=== PATIENT | female | born 1985 | race Caucasian/White ===

== ENCOUNTER → 2016-12-09 | Outpatient (CLI) | payer OTHER ==
[2016-04-08 13:40] VITALS: BP 114/75
[~2016-12-09] MED LIST: IBUP-1060 PO; PNV1TABL25 PO
--- NOTE | 2016-12-09 11:12 | RAD ---
PROCEDURE MR of the left knee HISTORY MR of the left knee Generalized pain for 2 weeks. History of arthroscopy. TECHNIQUE Routine multiplanar sequences are obtained. COMPARISON None FINDINGS No evidence of a medial meniscal tear. No evidence of a lateral meniscal tear. The anterior and the posterior cruciate ligaments are intact. Medial collateral ligament is intact. Iliotibial band unremarkable. Fibular collateral ligament, biceps femoris tendon and popliteus tendon are intact. Patellar tendon and quadriceps tendon are intact. There is a division of the lateral retinaculum, presumably due to a surgical release. Moderate joint effusion. Full-thickness articular cartilage defect at the posterior weight-bearing lateral femoral condyle measures 8 millimeters AP diameter by 6 millimeters wide. The cartilage fragment is in situ, with a thin surrounding margin of fluid signal. The fragment is completely surrounded by fluid, but there is no fluid across the basal layer and this fragment may therefore not be detached from the subchondral bone. Moderate chondromalacia at the posterior lateral tibial plateau. No evidence of bone lesion or acute fracture. Small intraosseous cyst or reactive change at the tibial plateau. No aggressive bone destruction. No acute soft tissue abnormality. IMPRESSION 1. Full-thickness articular cartilage tear at the posterior weight-bearing lateral femoral condyle with in situ cartilage fragment. There is no evidence of separation of this fragment from the underlying subchondral bone, but the fragment is surrounded by a rim of fluid signal. Chondromalacia at the subjacent posterior lateral tibial plateau. 2. No meniscal tear or other internal derangement. Electronically signed by: Kye Vásquez MD (Dec 09, 2016 11:10:45)
== END | disposition home or self-care (01) ==
LOC: MRI 08:05
PROVIDERS: ATTEND Nurse Practitioner Gerontology
DX: M25.562 Pain in left knee (principal)
CPT/HCPCS: 73721

== ENCOUNTER 2016-12-30 07:36 | Day surgery (SDC) | payer OTHER ==
[~2016-12-30] VITALS: Ht 167.6 cm; Wt 59.0 kg
[~2016-12-30 07:36] MED LIST changes: +HYDROmorphone 2 MG/ML VIAL IV PRN; +IV RINGERS,LACTATED 1000ML 1,000 ML IV SCH; +LIDOCAINE 1% 1 ML SYRINGE. ID PRN; +MEPERIDINE PF 25 MG/ML VIAL. IV PRN; +MIDAZOLAM HCL/PF 2 MG/2 ML VIAL. IV PRN; +MORPHINE SULFATE 4 MG/ML DISP.SYRIN. IV PRN; +PROCHLORPERAZINE 10 MG/2 ML VIAL. IV PRN; +diphenhydrAMINE 50 MG/ML VIAL IV PRN; +fentaNYL PF VIAL 100 MCG/2 ML VIAL IV PRN
[2016-12-30 08:07] LABS: NEG OBC UR NEG; POS OBC UR POS
[2016-12-30] MEDS ORDERED: MIDAZOLAM HCL/PF 2 MG/2 ML VIAL. ONE (08:24)
[2016-12-30] MEDS ORDERED: DEXAMETHASONE SOD PHOS 20 MG/5 ML VIAL. ONE (08:24)
[2016-12-30] MEDS ORDERED: FAMOTIDINE 20 MG/2 ML VIAL ONE (08:24)
[2016-12-30] MEDS ORDERED: ONDANSETRON PF 4 MG/2 ML VIAL. ONE (08:24)
[2016-12-30] MEDS ORDERED: fentaNYL PF VIAL 100 MCG/2 ML VIAL ONE (08:24)
[2016-12-30] MEDS ORDERED: PROPOFOL 20 ML IV ONE (08:24)
[2016-12-30] MEDS ORDERED: LIDOCAINE 2% 100 MG/5 ML SYRINGE. ONE (08:24)
--- NOTE | 2016-12-30 08:27 | PDOC ---
BRIEF OPERATIVE NOTE Date: December 30, 2016 Pre-Op Diagnosis L knee cartilage defect, lateral femoral condyle Post-Op Diagnosis same Procedure Performed L knee scope, microfracture Surgeon Celine Anesthesiologist Keaton Anesthesia Type: General Blood Loss 10mL Complications none PELON POWELL II, MD December 30, 2016 08:27
--- NOTE | 2016-12-30 08:28 | DISCH ---
DISCHARGE INSTRUCTIONS Condition on Discharge Condition on Discharge: Stable Activity After Discharge Activity Instructions for Disc: Other, see below Bathing Instructions: Shower-keep dressing dry Weight Bearing Status after Di: Non weight bearing Diet after Discharge Diet after Discharge: Regular Wound Incision Care Wound/Incision Care: Ice to area for comfort, Keep wound/cast CDI, Change dressing Contacting the DRAndrew after DC Call your doctor for: Concerns you may have Follow-Up Follow up with: Celine in 2wks Treatment/Equipment after DC Adaptive Equipment Issued: PELON Yang II, MD December 30, 2016 08:28
[2016-12-30] MEDS ORDERED: BUPIVACAINE MPF 0.5% 30 ML VIAL. ONE (08:48)
[2016-12-30] MEDS ORDERED: EPINEPHrine VIAL 30 MG/30 ML VIAL ONE (08:48)
[2016-12-30] MEDS ORDERED: LIDOCAINE 1% 20 ML VIAL. ONE (08:48)
[2016-12-30] MEDS ORDERED: SCOPOLAMINE 1.5MG PATCH. TD SCH (09:00)
[2016-12-30] MEDS ORDERED: SEVOFLURANE 61 TO 120 MINUTES. IH ONE (09:55)
[2016-12-30] MEDS ORDERED: OXYC-323 PO (10:25)
[2016-12-30] MEDS ORDERED: DOCU-27 PO (10:25)
[2016-12-30] MEDS ORDERED: ONDA4TAB10 SL (10:26)
[2016-12-30] MEDS ORDERED: OXYCODONE/APAP 5/325 TABLET. ONE (10:42)
[2016-12-30] MEDS ORDERED: OXYCODONE/APAP 5/325 TABLET. PO ONE (10:45)
[2016-12-30 10:55] VITALS: BP 107/60
--- NOTE | 2016-12-30 13:30 | OP ---
DATE OF SURGERY: 12/30/2016 SURGEON: Rafael Powell MD BENZENE STILL UTILITY OPERATOR: None. ANESTHESIA: General. PREOPERATIVE DIAGNOSIS: Full thickness cartilage defect lateral femoral condyle, left knee. POSTOPERATIVE DIAGNOSIS: Full thickness cartilage defect lateral femoral condyle, left knee. PROCEDURE PERFORMED: Left knee arthroscopy with microfracture. COMPLICATIONS: None. ESTIMATED BLOOD LOSS: 10 mL. TOURNIQUET TIME: 32 minutes. FINDINGS: 1. Intact patellofemoral cartilage. 2. No cartilage pathology of medial femoral condyle and medial tibial plateau. 3. Intact and stable medial meniscus. 4. Intact cruciate ligaments. 5. She had a 5 x 1 cm loose body in her knee. 6. She had a 5 x 1 cm full thickness cartilage defect lateral femoral condyle at approximately 30 or 40 degrees. 7. She had grade 2-3 changes at her lateral tibial plateau. 8. Intact lateral meniscus without pathology. PROCEDURES PERFORMED: Left knee arthroscopy with microfracture of cartilage defect, 5 mm x 10 mm. REASON FOR PROCEDURE: The patient is a very pleasant 31-year-old female who had presented to my outpatient orthopedic surgery clinic with complaints of knee pain and swelling. I had seen her in quite some time before for that and she mentioned her knees are bothering over the pain has got worse and the swelling was new. An MRI and radiographs had been obtaining and clinical workup and MRI were reviewed and discussed with her and I recommended we proceed with surgery. She elects to proceed. DESCRIPTION OF PROCEDURE: The patient was greeted in the preoperative area by myself. Correct extremity was marked and verified. The patient was taken to the operative suite and antibiotics were started en route. Once in the OR, she transferred gently supine on the OR table and secured to the bed. All pressure points were padded. She had a large padded bolster at her hip and a bar secured to the bed to maintain her leg at 90 degrees of flexion. We then placed a nonsterile tourniquet to her left thigh. We proceeded to prep and drape left lower extremity in our usual sterile fashion and conducted a standard preoperative timeout. Extremity was exsanguinated with an Esmarch and tourniquet insufflated to 250 mmHg. I then palpated, marked surface anatomy and made my standard anterolateral arthroscopic portal and then used the blunt arthroscopic trocar into the suprapatellar pouch. I then conducted my diagnostic arthroscopy. Upon entering the medial compartment, used a spinal needle localizing anteromedial portal and incised skin in accordance with this. I then introduced a probe and continued on with my diagnostic arthroscopy with the above noted findings. The loose body that was once encountered to the cartilage defect, I did note the loose body was trapped in there, but once I flexed the knee it was completely loose and I removed it from the knee joint with a grasper. I then placed the knee into a [id number] position and inspected the remainder of the lateral compartment. I then brought the knee back up more extension and used a curette to debride the lesion site and remove the calcified cartilage. I then used a shaver to remove loose bony debris. She had a very well-shouldered lesion. I then used a microfracture awl and placed several holes through the subchondral bone and held my shaver again these an aspirated to ensure that extravasation occurred at the holes. I then went around the entire knee again to make sure that there were no residual loose bodies. I then placed the camera and shaver in the suprapatellar pouch and assisted vigorously palpate behind the knee while performed repeated aspiration maneuvers through the shaver. I had removed all excess arthroscopic fluid and the arthroscopic instrumentation. I injected approximately 7 mL of local anesthetic around the periportal areas. The skin was then closed with a simple interrupted 2-0 nylon. Xeroform, sterile dressing, sterile cast padding and Jesús wrap were then applied. Tourniquet was let down. A hinged knee brace was then placed on the knee left open and full range of motion. Postop plan is further work on range of motion exercises. We will see her back in clinic in two weeks, sooner should problems arise. RAFAEL POWELL MD DR: CARLOS ENRIQUE/camacho JOB#: [id number] / [id number] NASIM
== END 2016-12-30 11:13 | disposition home or self-care (01) ==
LOC: SURG 07:36
PROVIDERS: ATTEND Orthopaedic Surgery Sports Medicine
DX: M94.8X6 Other specified disorders of cartilage, lower leg (principal); M23.42 Loose body in knee, left knee; E16.2 Hypoglycemia, unspecified; Z87.39 Personal history of other diseases of the musculoskeletal system and connective tissue
CPT/HCPCS: 29879; 81025; C1782; J0171; J0690; J1100; J2250; J2405; J2704; J3010; J3490; J7120; S0028

== ENCOUNTER 2017-01-27 09:02 | Emergency (ER) | payer OTHER ==
[~2017-01-27] VITALS: Ht 167.6 cm; Wt 59.0 kg
[~2017-01-27 09:02] MED LIST changes: +DOCU-27 PO; -HYDROmorphone 2 MG/ML VIAL IV PRN; -IV RINGERS,LACTATED 1000ML 1,000 ML IV SCH; -LIDOCAINE 1% 1 ML SYRINGE. ID PRN; -MEPERIDINE PF 25 MG/ML VIAL. IV PRN; -MIDAZOLAM HCL/PF 2 MG/2 ML VIAL. IV PRN; -MORPHINE SULFATE 4 MG/ML DISP.SYRIN. IV PRN; +ONDA4TAB10 SL; +OXYC-323 PO; -PROCHLORPERAZINE 10 MG/2 ML VIAL. IV PRN; -diphenhydrAMINE 50 MG/ML VIAL IV PRN; -fentaNYL PF VIAL 100 MCG/2 ML VIAL IV PRN
[2017-01-27 09:10] VITALS: BP 120/86
[2017-01-27] MEDS ORDERED: CLIN-44 PO (09:25)
[2017-01-27] MEDS ORDERED: PRED50TA PO (09:25)
--- NOTE | 2017-01-27 09:25 | PHYS DOC ---
Past Medical History Past Medical History: No Pertinent History Past Surgical History: Other Additional Past Surgical Histo: left knee Alcohol Use: Occasionally Drug Use: None Adult General Chief Complaint Chief Complaint: FOOT INJURY PAIN HPI HPI Patient is a 31 year old female who presents with an insect bite to the left medial ankle that happened 2 weeks ago. Patient states the area has increased swelling and redness. Patient denies any fever. Patient states she had arthroscopic knee surgery 4 weeks ago. Review of Systems Review of Systems Constitutional: Denies fever or chills [] Eyes: Denies change in visual acuity, redness, or eye pain [] HENT: Denies nasal congestion or sore throat [] Respiratory: Denies cough or shortness of breath [] Cardiovascular: No additional information not addressed in HPI [] GI: Denies abdominal pain, nausea, vomiting, bloody stools or diarrhea [] : Denies dysuria or hematuria [] Musculoskeletal: Denies back pain or joint pain [] Integument: Left medial ankle insect bite Neurologic: Denies headache, focal weakness or sensory changes [] Endocrine: Denies polyuria or polydipsia [] Allergies Allergies Allergies Coded Allergies Type Severity Reaction Last Updated Verified Sulfa (Sulfonamide Antibiotics) Allergy Severe 12/30/16 Yes egg Allergy Intermediate 12/30/16 Yes Physical Exam Physical Exam Constitutional: Well developed, well nourished, no acute distress, non-toxic appearance. [] HENT: Normocephalic, atraumatic, bilateral external ears normal, oropharynx moist, no oral exudates, nose normal. [] Eyes: PERRLA, EOMI, conjunctiva normal, no discharge. [] Neck: Normal range of motion, no tenderness, supple, no stridor. [] Cardiovascular:Heart rate regular rhythm, no murmur [] Lungs & Thorax: Bilateral breath sounds clear to auscultation [] Abdomen: Bowel sounds normal, soft, no tenderness, no masses, no pulsatile masses. [] Skin: Left medial ankle with a small area of cellulitis. There is mild soft tissue swelling around the left ankle especially on the medial aspect. The insect bite area is not fluctuant. The are is TTP but not warm to touch. Negative Homans sign to the left lower extremity. +2 left pedal pulse. Back: No tenderness, no CVA tenderness. [] Extremities: No tenderness, no cyanosis, no clubbing, ROM intact, no edema. [] Neurologic: Alert and oriented X 3, normal motor function, normal sensory function, no focal deficits noted. [] Psychologic: Affect normal, judgement normal, mood normal. [] Current Patient Data Vital Signs Vital Signs Date Time Temp Pulse Resp B/P (MAP) Pulse Ox O2 Delivery O2 Flow Rate FiO2 01/27/17 09:10 98.2 88 16 120/86 (97) 99 Room Air 98.2 EKG EKG [] Radiology/Procedures Radiology/Procedures [] Course & Med Decision Making Course & Med Decision Making Pertinent Labs and Imaging studies reviewed. (See chart for details) Patient is an insect bite to the left medial ankle. Discharged with prednisone, Benadryl, and clindamycin. Tetanus is up-to-date. Follow-up with PCP in one week. Provided return precautions and discharged in stable condition. Dragon Disclaimer Dragon Disclaimer This electronic medical record was generated, in whole or in part, using a voice recognition dictation system. Departure Departure Impression: Primary Impression: Cellulitis of left lower extremity Additional Impression: Nonvenomous spider bite of lower leg Disposition: HOME, SELF-CARE Condition: STABLE Referrals: FELIPE MERCADO MD (PCP) Follow-up in 3-7 days Patient Instructions: Cellulitis, Spider Bite Additional Instructions: You were seen for cellulitis of the left lower extremity from a spider bite. Take the prescribed antibiotics as ordered. Ensure you complete them. Continue taking ibuprofen as needed for pain. It'll help with the swelling as well. You can take Benadryl. It'll help with itching. We put you on prednisone for 5 days. It'll help with the inflammation. You do not have to take the prednisone some people do not like it because it makes them gain extra weight. Follow-up with your own doctor in the next 7 days. Come back to the emergency room if you develop any fever, or worsening wound condition. Continue to ice and elevate the extremity. Scripts Prednisone (PREDNISONE) 50 Mg Tablet 1 TAB PO DAILY, #5 TAB Prov: XIOMARA PURCELL HUMAN RESOURCES DEPARTMENT SUPERVISOR 01/27/17 Clindamycin Hcl (CLINDAMYCIN HCL) 150 Mg Capsule 3 CAP PO TID, #90 CAP Prov: JOSE LUISAXIOMARA HUMAN RESOURCES DEPARTMENT SUPERVISOR 01/27/17 Problem Qualifiers Additional Impression: Nonvenomous spider bite of lower leg Encounter type: initial encounter Laterality: left Qualified Codes: S80.862A - Insect bite (nonvenomous), left lower leg, initial encounter; W57.XXXA - Bitten or stung by nonvenomous insect and other nonvenomous arthropods, initial encounter XIOMARA PURCELL APRN January 27, 2017 09:25
== END 2017-01-27 09:28 | disposition home or self-care (01) ==
LOC: ER 09:02
DX: S90.562A Insect bite (nonvenomous), left ankle, initial encounter (principal); L03.116 Cellulitis of left lower limb; Z88.2 Allergy status to sulfonamides; Z91.012 Allergy to eggs; W57.XXXA Bitten or stung by nonvenomous insect and other nonvenomous arthropods, initial encounter; Y93.89 Activity, other specified; Y92.89 Other specified places as the place of occurrence of the external cause; Y99.8 Other external cause status
CPT/HCPCS: 99283

== ENCOUNTER → 2017-05-28 | Outpatient (CLI) | payer OTHER ==
[~2017-05-28] MED LIST changes: +CLIN150C14 PO; +DOCU-109 PO; -DOCU-27 PO; +PRED50TA PO
[2017-05-28 09:39] LABS: BASO # 0.1 x10^3/uL (0.0-0.2); BASO % 1 % (0-3); EOS % 2 % (0-3); HEMOGLOBIN 13.3 g/dL (12.0-15.5); LYMPH # 2.8 x10^3/uL (1.0-4.8); LYMPH % 32 % (24-48); MEAN CORPUSCULAR HEMOGLOBIN 31 pg (25-35); MEAN CORPUSCULAR HGB CONC 34 g/dL (31-37); MEAN CORPUSCULAR VOLUME 90 fL (79-100); MONO % 8 % (0-9); NEUT % 57 % (31-73); PLATELET COUNT 233 x10^3/uL (140-400); RED BLOOD COUNT 4.32 x10^6/uL (3.50-5.40); RED CELL DISTRIBUTION WIDTH 12.4 % (11.5-14.5); WHITE BLOOD COUNT 8.8 x10^3/uL (4.0-11.0)
[2017-05-28 10:04] LABS: ALBUMIN 4.4 g/dL (3.4-5.0); ALBUMIN/GLOBULIN RATIO 1.4 (1.0-1.7); CALCIUM 8.8 mg/dL (8.5-10.1); CREATININE 0.7 mg/dL (0.6-1.0); GFR 98.3; POTASSIUM 3.9 mmol/L (3.5-5.1); TOTAL BILIRUBIN 0.7 mg/dL (0.2-1.0); TOTAL PROTEIN 7.5 g/dL (6.4-8.2)
[2017-05-28 10:07] LABS: CHOLESTEROL/HDL RATIO 1.7
[2017-05-28 10:13] LABS: FREE T4 0.87 ng/dL (0.76-1.46)
== END | disposition home or self-care (01) ==
LOC: LAB 09:27
PROVIDERS: ATTEND Obstetrics & Gynecology
DX: Z01.419 Encounter for gynecological examination (general) (routine) without abnormal findings (principal); Z79.899 Other long term (current) drug therapy
CPT/HCPCS: 36415; 80053; 80061; 84439; 84443; 85025

== ENCOUNTER → 2019-09-19 | Outpatient (CLI) | payer OTHER ==
[~2019-09-19] MED LIST changes: -OXYC-323 PO; +OXYC1TAB15 PO
[2019-09-19 12:36] LABS: BASO # 0.1 x10^3/uL (0.0-0.2); BASO % 1 % (0-3); BILIRUBIN,URINE NEGATIVE (NEG); CLARITY,URINE CLEAR; COLOR,URINE YELLOW; EOS # 0.2 x10^3/uL (0.0-0.7); EOS % 2 % (0-3); HEMATOCRIT 38.3 % (36.0-47.0); HEMOGLOBIN 13.2 g/dL (12.0-15.5); LYMPH # 2.7 x10^3/uL (1.0-4.8); LYMPH % 32 % (24-48); MEAN CORPUSCULAR HEMOGLOBIN 31 pg (25-35); MEAN CORPUSCULAR HGB CONC 34 g/dL (31-37); MEAN CORPUSCULAR VOLUME 89 fL (79-100); MONO # 0.7 x10^3/uL (0.0-1.1); MONO % 8 % (0-9); NEUT # 4.8 x10^3/uL (1.8-7.7); NEUT % 57 % (31-73); NITRITE,URINE NEGATIVE (NEG); PH,URINE 5.5; PLATELET COUNT 236 x10^3/uL (140-400); PROTEIN,URINE NEGATIVE (NEG-TRACE); RED BLOOD COUNT 4.29 x10^6/uL (3.50-5.40); RED CELL DISTRIBUTION WIDTH 12.5 % (11.5-14.5); UROBILINOGEN,URINE 0.2 mg/dL (0.2 mg/dL); WHITE BLOOD COUNT 8.4 x10^3/uL (4.0-11.0)
[2019-09-19 12:47] LABS: SQUAMOUS EPITHELIAL CELL,UR FEW /LPF
[2019-09-19 12:48] LABS: BACTERIA,URINE 0 /HPF (0-FEW); RBC,URINE 0 /HPF (0-2); WBC,URINE OCC /HPF (0-4)
[2019-09-19 12:50] LABS: ALBUMIN 4.4 g/dL (3.4-5.0); ALBUMIN/GLOBULIN RATIO 1.6 (1.0-1.7); CALCIUM 8.7 mg/dL (8.5-10.1); CREATININE 0.7 mg/dL (0.6-1.0); POTASSIUM 3.7 mmol/L (3.5-5.1); TOTAL BILIRUBIN 0.5 mg/dL (0.2-1.0); TOTAL PROTEIN 7.2 g/dL (6.4-8.2)
== END | disposition home or self-care (01) ==
LOC: LAB 12:19
PROVIDERS: ATTEND Nurse Practitioner Family
DX: R07.9 Chest pain, unspecified (principal); R10.9 Unspecified abdominal pain; Z79.899 Other long term (current) drug therapy
CPT/HCPCS: 36415; 80053; 81001; 84443; 85025

== ENCOUNTER → 2019-09-19 | Outpatient (CLI) | payer OTHER ==
--- NOTE | 2019-09-19 14:09 | RAD ---
AP and Lateral Views of the Chest 09/19/2019 12:00 AM Indication: Chest pain Comparison: Chest radiograph October 30, 2010 Findings: There is no focal consolidation or infiltrate identified. The cardiomediastinal silhouette is within normal limits. There is no evidence of pneumothorax or pleural effusion. No acute osseous abnormalities are identified. Impression: No evidence of acute cardiopulmonary process. Electronically signed by: Garland Wheat MD (09/19/2019 2:06 PM) [id number]
== END | disposition home or self-care (01) ==
LOC: RAD 12:49
PROVIDERS: ATTEND Nurse Practitioner Family
DX: R07.9 Chest pain, unspecified (principal)
CPT/HCPCS: 71046

== ENCOUNTER → 2020-04-10 | Outpatient (CLI) | payer OTHER ==
--- NOTE | 2020-04-10 17:31 | RAD ---
STUDY: MRI of the left knee without contrast INDICATION: Chronic knee pain. History of microfracture surgery. COMPARISON: 12/09/2016 TECHNIQUE: Multiplanar MR imaging of the left knee performed without the use of intravenous or intra-articular contrast. FINDINGS: Particularly the axial and coronal T2 sequences are degraded by a diminished [id number] ratio. Menisci: On the sagittal T2 sequence, apparent horizontal and oblique undersurface signal extending along the body and posterior horn of the medial meniscus is without a abnormality on the coronal T2 sequence and may be artifactual. The morphology of the lateral meniscus is unchanged from 2017 the with a somewhat blunted configuration of the posterior horn. Unchanged morphology of the lateral meniscus with no fluid signal tear defect. Cruciate ligaments: Intact. Collateral ligaments: Intact. Tendons: Intact. Cartilage: Patellofemoral: No newly seen chondral defect. Lateral compartment: Sequela of microfracture procedure involving the proximal nonweightbearing lateral femoral condyle. The defect appears relatively well filled in with fibrotic tissue though there is faint subjacent marrow edema and mild irregularity of the subchondral bone plate, image 8 series 6. There is chondral thinning of the lateral tibial plateau adjacent to this location that has progressed such as seen on image 10 series 7 and development of trace subchondral cystic change is seen on image 8 series 8. Medial compartment: No newly seen chondral defect. Bones: No acute fracture or aggressive marrow signal abnormality. Miscellaneous: Small knee joint effusion. IMPRESSION: 1. Sequela of chondral microfracture procedure at the proximal nonweightbearing lateral femoral condyle. There is faint subchondral marrow edema at this location but the previously seen defect is relatively well filled with fibrotic material. Note is made that there has been progression of chondral thinning at the posterior aspect of the lateral tibial plateau adjacent to the site of microfracture but without a discrete full-thickness defect. The appearance of the medial and patellofemoral compartment cartilage is no different. 2. Horizontal/undersurface oblique signal within the medial meniscus body and posterior horn is favored artifactual as no similar signal abnormality is seen on the additional sequences. Collectively no change in morphology of either meniscus. Intact cruciate and collateral ligaments. 3. Small knee joint effusion. Electronically signed by: MATEUSZ DEL CASTILLO MD (04/10/2020 5:28 PM) [id number]
== END | disposition home or self-care (01) ==
LOC: MRI 14:01
PROVIDERS: ATTEND Orthopaedic Surgery Sports Medicine
DX: M25.462 Effusion, left knee (principal); G89.29 Other chronic pain; Z87.81 Personal history of (healed) traumatic fracture
CPT/HCPCS: 73721

== ENCOUNTER → 2020-12-03 | Outpatient (CLI) | payer OTHER ==
[~2020-12-03] MED LIST changes: -CLIN150C14 PO; +CLIN150C15 PO
[2020-12-03 15:47] LABS: BASO % 0 % (0-3); EOS # 0.2 x10^3/uL (0.0-0.7); EOS % 2 % (0-3); HEMATOCRIT 35.8 % (36.0-47.0); HEMOGLOBIN 12.4 g/dL (12.0-15.5); LYMPH # 2.2 x10^3/uL (1.0-4.8); LYMPH % 26 % (24-48); MEAN CORPUSCULAR HEMOGLOBIN 31 pg (25-35); MEAN CORPUSCULAR HGB CONC 35 g/dL (31-37); MEAN CORPUSCULAR VOLUME 90 fL (79-100); MONO # 0.6 x10^3/uL (0.0-1.1); MONO % 7 % (0-9); NEUT # 5.6 x10^3/uL (1.8-7.7); NEUT % 65 % (31-73); PLATELET COUNT 182 x10^3/uL (140-400); RED CELL DISTRIBUTION WIDTH 12.5 % (11.5-14.5); WHITE BLOOD COUNT 8.5 x10^3/uL (4.0-11.0)
== END ==
LOC: LAB 15:05
PROVIDERS: ATTEND Nurse Practitioner Family
DX: R53.83 Other fatigue (principal); D64.9 Anemia, unspecified
CPT/HCPCS: 36415; 82306; 82607; 82746; 83540; 83550; 84443; 85025

== ENCOUNTER → 2021-01-02 | Outpatient (CLI) | payer OTHER ==
--- NOTE | 2021-01-02 15:56 | RAD ---
Complete abdominal ultrasound 01/02/2021 1:20 PM Clinical History: Reason: abd pain/ruq / Spl. Instructions: / History: Technique: Ultrasound examination of the abdomen was performed, and multiple static images were subm itted for review. Comparison: None Findings: The pancreas is partially visualized. Visualized portions of the pancreas are within normal limits. V isualized portions of aorta and IVC are unremarkable. The gallbladder is normal in appearance without wall thickening, stones, or sludge. No pericholecystic fluid is seen. Sonographic Villalba's sign is n egative. The common bile duct measures 3-4 mm in diameter which is within normal limits. Millimeters top normal in size measuring 18 cm longitudinally.. The liver is normal in echotexture. N o intrahepatic biliary ductal dilatation is seen. No focal hepatic lesions are identified. The spleen is normal in appearance measuring between 11 and 12 cm longitudinally. The visualized bilateral kidneys demonstrate no evidence of obstructive uropathy, nephrolithiasis, or focal renal lesion. The left kidney is somewhat poorly visualized. The right kidney is unremarkable in appearance measuring 11 cm in length. Impression: No sonographic evidence of acute intra-abdominal abnormality Electronically signed by: Garland Wheat MD (01/02/2021 3:54 PM) [id number]
== END ==
LOC: US 13:14
PROVIDERS: ATTEND Nurse Practitioner Family
DX: R10.11 Right upper quadrant pain (principal); R10.9 Unspecified abdominal pain
CPT/HCPCS: 76700

== ENCOUNTER → 2021-09-10 | Outpatient (CLI) | payer OTHER ==
[~2021-09-10] MED LIST changes: -CLIN150C15 PO; +CLIN150C16 PO
[2021-09-11 00:04] LABS: BILIRUBIN,URINE NEGATIVE (NEG); CLARITY,URINE CLEAR; COLOR,URINE AMBER; NITRITE,URINE POSITIVE (NEG); PROTEIN,URINE NEGATIVE (NEG-TRACE); UROBILINOGEN,URINE 0.2 mg/dL (0.2 mg/dL)
[2021-09-11 00:11] LABS: BACTERIA,URINE FEW /HPF (0-FEW); RBC,URINE 0 /HPF (0-2); WBC,URINE 20-40 /HPF (0-4)
== END ==
LOC: LAB 12:04
PROVIDERS: ATTEND Nurse Practitioner Family
DX: N39.0 Urinary tract infection, site not specified (principal)
CPT/HCPCS: 81001; 87086

== ENCOUNTER → 2021-10-15 | Outpatient (CLI) | payer OTHER ==
[2021-10-15 10:55] LABS: BASO % 1 % (0-3); EOS # 0.2 x10^3/uL (0.0-0.7); EOS % 4 % (0-3); HEMOGLOBIN 11.8 g/dL (12.0-15.5); LYMPH # 1.9 x10^3/uL (1.0-4.8); LYMPH % 33 % (24-48); MEAN CORPUSCULAR HEMOGLOBIN 31 pg (25-35); MEAN CORPUSCULAR HGB CONC 34 g/dL (31-37); MEAN CORPUSCULAR VOLUME 92 fL (79-100); MONO # 0.5 x10^3/uL (0.0-1.1); MONO % 8 % (0-9); NEUT # 3.2 x10^3/uL (1.8-7.7); NEUT % 54 % (31-73); PLATELET COUNT 210 x10^3/uL (140-400); RED CELL DISTRIBUTION WIDTH 13.2 % (11.5-14.5); WHITE BLOOD COUNT 5.8 x10^3/uL (4.0-11.0)
[2021-10-15 11:10] LABS: FREE T4 0.83 ng/dL (0.76-1.46); THYROID STIM HORMONE (TSH) 0.742 uIU/mL (0.358-3.74)
[2021-10-15 11:12] LABS: ALBUMIN/GLOBULIN RATIO 1.3 (1.0-1.7); CALCIUM 8.1 mg/dL (8.5-10.1); CREATININE 0.7 mg/dL (0.6-1.0); GFR 95.8; POTASSIUM 3.5 mmol/L (3.5-5.1); TOTAL BILIRUBIN 0.4 mg/dL (0.2-1.0); TOTAL PROTEIN 7.1 g/dL (6.4-8.2)
== END ==
LOC: LAB 10:14
PROVIDERS: ATTEND Obstetrics & Gynecology
DX: Z13.9 Encounter for screening, unspecified (principal); R45.86 Emotional lability; R68.82 Decreased libido; R51.9 Headache, unspecified; R53.83 Other fatigue; Z83.49 Family history of other endocrine, nutritional and metabolic diseases
CPT/HCPCS: 36415; 80053; 82533; 84439; 84443; 84481; 85025